=== PATIENT | female | born 1935 | race Two or more races ===

== ENCOUNTER 2017-07-11 08:24 | Outpatient (CLI) | payer OTHER ==
[~2017-07-11 08:24] MED LIST: CALAN IV; CIPRO500 MG PO; FLAGYL500MG PO; GLIMEPIRIDE2 MG PO; ISORDIL10 MG PO
== END 2017-07-11 08:30 | disposition home or self-care (01) ==
LOC: RAD 08:24
DX: J44.1 Chronic obstructive pulmonary disease with (acute) exacerbation (principal); H26.8 Other specified cataract; M81.8 Other osteoporosis without current pathological fracture; E56.8 Deficiency of other vitamins; K92.1 Melena; N18.3 Chronic kidney disease, stage 3 (moderate); I48.2 Chronic atrial fibrillation; Z44.8 Encounter for fitting and adjustment of other external prosthetic devices; I10 Essential (primary) hypertension; I49.5 Sick sinus syndrome; I42.0 Dilated cardiomyopathy; E11.9 Type 2 diabetes mellitus without complications; J98.4 Other disorders of lung; E78.4 Other hyperlipidemia; E11.21 Type 2 diabetes mellitus with diabetic nephropathy; E03.8 Other specified hypothyroidism; M15.8 Other polyosteoarthritis; E79.0 Hyperuricemia without signs of inflammatory arthritis and tophaceous disease; J41.1 Mucopurulent chronic bronchitis; K29.30 Chronic superficial gastritis without bleeding; K57.30 Diverticulosis of large intestine without perforation or abscess without bleeding; I73.89 Other specified peripheral vascular diseases; F34.89 Other specified persistent mood disorders

== ENCOUNTER 2017-11-12 10:30 | Outpatient (CLI) | payer OTHER | END 2017-11-12 15:50 | disposition home or self-care (01) | LOC: TOM 10:30 | DX: S83.204A Other tear of unspecified meniscus, current injury, left knee, initial encounter (principal) ==

== ENCOUNTER → 2018-05-26 | Emergency (ER) | payer OTHER ==
[~2018-05-26] VITALS: Ht 157.5 cm; Wt 68.0 kg
[~2018-05-26] MED LIST changes: +ALLOPURINOL300 MG; +CARVEDILOL3.125 MG; +COREG CR10 MG; +DIOVAN320 MG; +NORVASC2.5 M1; +SYNTHROID75 MCG; +TRADJENTA5 MG; +XANAX0.25 MG
== END | disposition left against medical advice (07) ==
LOC: ER 23:12
DX: Z53.20 Procedure and treatment not carried out because of patient's decision for unspecified reasons (principal)

== ENCOUNTER 2018-07-09 08:56 | Outpatient (CLI) | payer OTHER | END 2018-07-09 09:01 | disposition home or self-care (01) | LOC: RAD 08:56 | DX: I11.9 Hypertensive heart disease without heart failure (principal); M54.5 Low back pain ==

== ENCOUNTER 2019-06-24 11:08 | Outpatient (CLI) | payer OTHER | END 2019-06-24 11:39 | disposition home or self-care (01) | LOC: NUCLEAR 11:08 | DX: M81.0 Age-related osteoporosis without current pathological fracture (principal) ==

== ENCOUNTER 2019-06-24 12:58 | Outpatient (CLI) | payer OTHER | END 2019-06-24 13:03 | disposition home or self-care (01) | LOC: MAMO-SONO 12:58 | DX: N63.11 Unspecified lump in the right breast, upper outer quadrant (principal); Z12.31 Encounter for screening mammogram for malignant neoplasm of breast; N60.11 Diffuse cystic mastopathy of right breast ==

== ENCOUNTER 2019-06-24 15:29 | Outpatient (CLI) | payer OTHER | END 2019-06-24 15:31 | disposition home or self-care (01) | LOC: LAB 15:29 | DX: E11.9 Type 2 diabetes mellitus without complications (principal); I10 Essential (primary) hypertension; E03.8 Other specified hypothyroidism; E78.2 Mixed hyperlipidemia; Z12.11 Encounter for screening for malignant neoplasm of colon; N39.0 Urinary tract infection, site not specified ==

== ENCOUNTER 2020-02-29 17:57 | Inpatient (IN) | payer OTHER ==
[~2020-02-29] VITALS: Ht 157.5 cm; Wt 68.0 kg
[2020-03-03] MEDS ORDERED: LEVOTHYROXINE75 MCG PO (15:56)
[2020-03-03] MEDS ORDERED: CARVEDILOL3.125 MG PO (15:57)
[2020-03-03] MEDS ORDERED: ST. JOSEPH ASPI81 M2 PO (15:58)
[2020-03-03] MEDS ORDERED: CARVEDILOL12.5 MG PO (17:42)
== END 2020-03-03 17:44 | disposition home or self-care (01) | DRG 291 ==
LOC: ER 17:57 → MEDI 21:55
PROVIDERS: ADMIT Internal Medicine; ATTEND Internal Medicine
PROC: 3E0F7SF Introduction of Other Gas into Respiratory Tract, Via Natural or Artificial Opening (ICD-10-PCS; 2020-02-29)
PROC: 4A12X4Z Monitoring of Cardiac Electrical Activity, External Approach (ICD-10-PCS; principal; 2020-03-01)
PROC: B54DZZZ Ultrasonography of Bilateral Lower Extremity Veins (ICD-10-PCS; 2020-03-01)
PROC: B24BZZZ Ultrasonography of Heart with Aorta (ICD-10-PCS; 2020-03-02)
DX: I13.0 Hypertensive heart and chronic kidney disease with heart failure and stage 1 through stage 4 chronic kidney disease, or unspecified chronic kidney disease (principal); I50.21 Acute systolic (congestive) heart failure; N18.4 Chronic kidney disease, stage 4 (severe); N17.8 Other acute kidney failure; E78.49 Other hyperlipidemia; D63.1 Anemia in chronic kidney disease; Z20.828 Contact with and (suspected) exposure to other viral communicable diseases; E03.9 Hypothyroidism, unspecified; Z95.0 Presence of cardiac pacemaker; E11.9 Type 2 diabetes mellitus without complications; Z79.4 Long term (current) use of insulin

== ENCOUNTER 2020-10-06 09:10 | Outpatient (CLI) | payer OTHER ==
[~2020-10-06 09:10] MED LIST changes: +CARVEDILOL12.5 MG PO; +CARVEDILOL3.125 MG PO; +LEVOTHYROXINE75 MCG PO; +ST. JOSEPH ASPI81 M2 PO
== END 2020-10-06 14:48 | disposition home or self-care (01) ==
LOC: RAD 09:10
PROVIDERS: ATTEND Ophthalmology
DX: H25.012 Cortical age-related cataract, left eye (principal); Z98.42 Cataract extraction status, left eye

== ENCOUNTER → 2021-05-15 | Outpatient (CLI) | payer OTHER ==
[~2021-05-15] MED LIST changes: +ALPRAZOLAM0.25 MG PO; +AMLODIPINE PO; +CARVEDILOL12.5 M1 PO; +DULOXETINE PO; +IRBESARTAN-HCT1 EACH PO; +LOKELMA5 GM PO; +PANTOPRAZOLE SO40 MG PO; +SYNTHROID50 MCG PO; +TRADJENTA5 MG PO
== END | disposition home or self-care (01) ==
LOC: PPH VACUNA 08:00
PROVIDERS: ATTEND Emergency Medicine Pediatric Emergency Medicine
DX: Z23 Encounter for immunization (principal)

== ENCOUNTER 2021-07-03 05:55 | Day surgery (SDC) | payer OTHER ==
[~2021-07-03 05:55] MED LIST changes: -ALPRAZOLAM0.25 MG PO; -AMLODIPINE PO; -CARVEDILOL12.5 M1 PO; -DULOXETINE PO; -IRBESARTAN-HCT1 EACH PO; -LOKELMA5 GM PO; -PANTOPRAZOLE SO40 MG PO; -SYNTHROID50 MCG PO; -TRADJENTA5 MG PO
== END 2021-07-03 09:35 | disposition home or self-care (01) ==
LOC: AMB-ENDOS 05:55
PROVIDERS: ATTEND Surgery
DX: D12.6 Benign neoplasm of colon, unspecified (principal); D12.8 Benign neoplasm of rectum; K57.30 Diverticulosis of large intestine without perforation or abscess without bleeding; Z20.822 Contact with and (suspected) exposure to COVID-19

== ENCOUNTER 2021-07-19 08:59 | Inpatient (IN) | payer OTHER ==
[~2021-07-19] VITALS: Ht 162.6 cm; Wt 65.8 kg
[~2021-07-19 08:59] MED LIST changes: +ALPRAZOLAM0.25 MG PO; +AMLODIPINE PO; +CARVEDILOL12.5 M1 PO; +DULOXETINE PO; +IRBESARTAN-HCT1 EACH PO; +LOKELMA5 GM PO; +PANTOPRAZOLE SO40 MG PO; +SYNTHROID50 MCG PO; +TRADJENTA5 MG PO
[2021-07-26] MEDS ORDERED: DULOXETINE HCL60 MG (08:03)
[2021-07-26] MEDS ORDERED: AMLODIPINE BESYL5 MG (08:03)
== END 2021-07-27 19:24 | disposition home or self-care (01) | DRG 334 ==
LOC: SURH 07-26 07:33 → O/R 07-26 07:33 → SURH 07-26 10:15
PROVIDERS: ADMIT Surgery; ATTEND Surgery
PROC: 3E0T3BZ Introduction of Anesthetic Agent into Peripheral Nerves and Plexi, Percutaneous Approach (ICD-10-PCS; 2021-07-26)
PROC: 0DBP4ZZ Excision of Rectum, Percutaneous Endoscopic Approach (ICD-10-PCS; principal; 2021-07-26 19:30)
DX: D01.3 Carcinoma in situ of anus and anal canal (principal); D12.8 Benign neoplasm of rectum; Z20.822 Contact with and (suspected) exposure to COVID-19

== ENCOUNTER 2022-07-20 07:22 | Outpatient (CLI) | payer OTHER ==
[~2022-07-20 07:22] MED LIST changes: +AMLODIPINE BESYL5 MG; +DULOXETINE HCL60 MG
== END 2022-07-20 08:00 | disposition home or self-care (01) ==
LOC: TOM 07:22
PROVIDERS: ATTEND Physical Medicine & Rehabilitation
DX: M54.59 Other low back pain (principal); M51.16 Intervertebral disc disorders with radiculopathy, lumbar region; R26.2 Difficulty in walking, not elsewhere classified

== ENCOUNTER 2023-05-15 17:00 | Emergency (ER) | payer OTHER ==
[~2023-05-15] VITALS: Ht 162.6 cm; Wt 65.8 kg
[2023-05-15 18:28] LABS: HEMATOCRIT 30.4 % (36.0-45.00); HEMOGLOBIN 9.9 g/dL (12.0-15.00); MEAN CELL VOLUME 89.8 fL (80.00-100.00); MEAN CORPUSCULAR HEMOGLOBIN 29.2 pg (27.00-32.0); MEAN CORPUSCULAR HGB CONC 32.5 g/dl (32.0-36.0); PLATELET COUNT 166 K/uL (150-450); RED BLOOD COUNT 3.38 M/uL (4.00-6.00); RED CELL DISTRIBUTION WIDTH 14.4 % (11.5-14.5)
[2023-05-15 18:53] LABS: BILIRUBIN TOTAL 0.57 mg/dL (0.3-1.2); CALCIUM 9.3 mg/dL (8.5-10.1); CREATININE SERUM 2.69 mg/dL (0.55-1.02); GFR 16.7; GLOBULINA 3.5 G/DL (2.4-3.5); TOTAL PROTEIN 7.5 gm/dL (6.4-8.2)
[2023-05-15 19:02] LABS: POTASSIUM 6.29 mEq/L (3.5-5.1)
[2023-05-15 19:26] LABS: PH,URINE 6.5 (5.0-8.0); URINE APPEARANCE Clear; URINE BILIRRUBIN Negative (NEGATIVE); URINE BLOOD Negative; URINE COLOR Yellow; URINE GLUCOSE Negative (NEGATIVE); URINE LEUKOCYTE Trace; URINE NITRATE Negative; URINE PROTEIN Trace (NEGATIVE); URINE UROBILINOGEN 0.2 E.U./dl
[2023-05-15 19:27] LABS: URINE BACTERIA 156.2 uL (0.0-1933); URINE EPITHELIAL CELLS 17.3 uL (0.0-38.8)
== END 2023-05-15 22:48 | disposition left against medical advice (07) ==
LOC: ER 17:01
PROVIDERS: Nurse Practitioner Family
DX: R53.1 Weakness (principal); E11.9 Type 2 diabetes mellitus without complications; Z79.84 Long term (current) use of oral hypoglycemic drugs; Z20.822 Contact with and (suspected) exposure to COVID-19
CPT/HCPCS: 36415; 71046; 96365; 96366; 99284; J3490; J7042